=== PATIENT | female | born 1995 | race Caucasian/White ===

== ENCOUNTER → 2024-07-03 | Outpatient (CLI) | payer BC ==
--- NOTE | 2024-07-03 09:56 | US ---
EXAMINATION TYPE: US abdomen complete DATE OF EXAM: 07/03/2024 COMPARISON: NONE CLINICAL INDICATION: Female, 28 years old with history of R94.8 ABN RESULTS; elevated liver enzymes. TECHNIQUE: Grayscale and color Doppler imaging of the abdomen was performed. FINDINGS: EXAM MEASUREMENTS: Liver Length: 18.1 cm Gallbladder Wall: .3 cm CBD: .5 cm, color Doppler imaging was utilized to isolate the common bile duct for measurement. Spleen: 15.7 cm Right Kidney: 11.7 x 3.9 x 6.8 cm Left Kidney: 12.2 x 3.7 x 5.9 cm [employer]ES [employer] NOTES: Pancreas: Obscured by bowel gas Liver: Increased attenuation, no dilated ducts, masses or cysts. Gallbladder: multiple stones seen. Evidence for sonographic Echeverria's sign: no CBD: wnl Spleen: Splenomegaly Right Kidney: wnl, No hydronephrosis, calculi or masses seen Left Kidney: wnl, No hydronephrosis, calculi or masses seen Upper IVC: wnl Abd Aorta: wnl The liver is heterogeneously hyperechoic and mildly enlarged. This limits evaluation for focal ebenezer s. The intrahepatic portion of the IVC and proximal abdominal aorta are within normal limits. There is shadowing mobile gallstones. Common bile duct is unremarkable. The visualized portions of the pa ncreas are homogenous. The spleen is enlarged. Kidneys are symmetric and free of hydronephrosis. N o renal lesions are seen. IMPRESSION: Splenomegaly is present. Mild hepatomegaly. There is diffuse fatty infiltration and/or underlying hep atocellular disease. No ascites or biliary dilatation. [facility], , 07/03/2024 9:54 AM
== END | disposition home or self-care (01) ==
LOC: RADUSWWP 07:25
PROVIDERS: ATTEND Family Medicine
DX: R16.2 Hepatomegaly with splenomegaly, not elsewhere classified (principal); R94.8 Abnormal results of function studies of other organs and systems
CPT/HCPCS: 76700